=== PATIENT | male | born 1995 | race American Indian/Alaskan Native ===

== ENCOUNTER 2020-03-29 19:02 | Inpatient (IN) | payer OTHER ==
[~2020-03-29] VITALS: Ht 180.3 cm; Wt 99.9 kg
[2020-03-29 20:08] LABS: HEMATOCRIT 41.6 % (42.0-52.0); HEMOGLOBIN 14.5 g/dl (13.5-17.5); MEAN CORPUSCULAR HEMOGLOBIN 31.6 pg (27.0-33.0); MEAN CORPUSCULAR HGB CONC 34.9 g/dl (32.0-36.5); MEAN CORPUSCULAR VOLUME 90.6 fl (80.0-96.0); PLATELET COUNT, AUTOMATED 224 10^3/uL (150-450); RED BLOOD COUNT 4.59 10^6/uL (4.30-6.10); WHITE BLOOD COUNT 8.6 10^3/uL (4.0-10.0)
[2020-03-29 20:29] LABS: AMPHETAMINES LEVEL URINE NEGATIVE (NEGATIVE); BARBITURATES URINE NEGATIVE (NEGATIVE); BENZODIAZEPINES URINE NEGATIVE (NEGATIVE); CANNABINOIDS URINE NEGATIVE (NEGATIVE); COCAINE METABOLITE URINE NEGATIVE (NEGATIVE); METHADONE URINE NEGATIVE (NEGATIVE); OPIATES URINE NEGATIVE (NEGATIVE); PHENCYCLIDINE URINE NEGATIVE (NEGATIVE)
[2020-03-29 20:46] LABS: ACETAMINOPHEN LEVEL < 2.0 UG/ML (10.0-30.0); ALBUMIN 4.3 GM/DL (3.2-5.2); ALT/SGPT 29 U/L (12-78); BILIRUBIN,DIRECT 0.1 MG/DL (0.0-0.2); BILIRUBIN,TOTAL 0.4 MG/DL (0.2-1.0); BLOOD UREA NITROGEN 18 MG/DL (7-18); CALCIUM LEVEL 8.9 MG/DL (8.5-10.1); CARBON DIOXIDE LEVEL 30 MEQ/L (21-32); CHLORIDE LEVEL 106 MEQ/L (98-107); CREATININE FOR GFR 0.92 MG/DL (0.70-1.30); ETHYL ALCOHOL (ETHANOL) < 0.003 % (0.000-0.010); GLOMERULAR FILTRATION RATE > 60.0 (>60); GLUCOSE, FASTING 98 MG/DL (70-100); SALICYLATE LEVEL < 1.7 MG/DL (5.0-30.0); SODIUM LEVEL 139 MEQ/L (136-145); TOTAL PROTEIN 7.3 GM/DL (6.4-8.2)
[2020-03-29] MEDS ORDERED: OLANZapine ORAL DISINTEGRATING TAB 5MG PO PRN (22:00)
[2020-03-29] MEDS ORDERED: traZODone 50 MG TAB PO PRN (22:00)
[2020-03-29] MEDS ORDERED: ACETAMINOPHEN TAB 650MG DOSE (2X325MG) PO PRN (22:00)
[2020-03-29] MEDS ORDERED: MAALOX 30 ML SUSP *UDC PO PRN (22:00)
[2020-03-29] MEDS ORDERED: MOM 30ML SUSPENSION UDC PO PRN (22:00)
[2020-03-29 22:40] VITALS: BP 140/77
[2020-03-30 06:36] VITALS: BP 124/60
--- NOTE | 2020-03-30 09:15 | MHHPEPDOC ---
General Date Of Admission: Mar 29, 2020 Legal Status: 9.39 Chief Complaint "I wanted to talk". History of Present Illness HISTORY OF THE PRESENT ILLNESS: Patient is a 24 -year-old , male, who presents to [facility] after reportedly having some depressing thoughts, he was brought in to" speak to someone", however, was admitted out of an abundance of caution. The patient reports although he's had some stressful events in the does not like his unit, he has no suicidal thoughts. He reports some fatigue and insomnia, but that these are probably stress related. He reports his in suits arrived he hasn't had any major problems and reports that he's interested in being discharged. Psychiatric Review of Systems Depression (2 or more weeks): depressed mood Shayy (4 or more days of): denies Psychosis: denies PTSD: denies Anxiety: stressor related anxiety, panic attacks Anxiety/ 6 months or more of: sleep disturbance Past Psychiatric History Previous Psychiatric Diagnosis: none. Previous Psychiatric Admissions: once when he was very young Suicide Attempts:. Denies. Psychiatric Follow-up: none. Psychiatric medications: none. Past Medical History Medical Problems No significant medical problems Family Medical/Psychiatric HX Psychiatric Disorders: Yes (Some depression in various family members) Addiction History denies Social History Childhood: "fine". Abuse/Trauma: denies. Current Living Situation: lives in [place]. Education: high school. Employment: . Social Support: few. Legal: none noted. Marital: single no children. Mental Status Examination General Appearance: well groomed Build: average Demeanor: average Eye Contact: average Activity: average Behavior: cooperative Speech: clear Mood: euthymic Affect: full Thought Content (Delusions): denies SI, HI, AVH Thought Content (Other): none reported Thought Content (Aggressive): none reported Perception (Hallucinations): none reported Perception (Other): none reported Cognition (Impairment of): none reported Cognition(Intelligence Est.): average Insight: fair Judgment: Fair Psychosis: Denies A-FIB/CHADSVASC A-FIB History Current/History of A-Fib/PAF?: No Assessment 22-year-old man that likely presents in a state of adjustment is seen and start out medications, he would likely be discharged tomorrow as he does not meet involuntary criteria. Problem List Problems: (1) Adjustment disorder Status: Acute Response to Treatment: Improving Problem Text: Start Wellbutrin 150 mg daily, discussed risks, benefits and potential side effects, screens negative for seizures and eating disorders. (2) Occupation-related stress disorder Status: Chronic Problem Text: Recommend therapy outpatient (3) Discharge planning issues Problem Text: discharge protocols. Initial Treatment Plan 1. Patient was admitted on a [9.39] status. 2. Complete history was obtained. 3. With patients permission, family will be contacted and database will be expa nded. 4. Patients medication regimen will be reviewed and changed accordingly. 5. Patient will be provided with protected environment. 6. Patient will be treated with individual, group, and milieu therapies. 7. Patient will receive supportive psych-education. 8. Discharge planning will commence immediately. 9. Outpatient follow-up treatment will be strongly recommended. 10. The initial treatment plan will focus initially on: * Ineffective coping Risk for suicide. ESTIMATED LENGTH OF STAY: 1-2 DAYS. TIME SPENT COUNSELING AND COORDINATING INITIAL CARE: 30 minutes. Vital Signs Vital Signs Date Time Temp Pulse Resp B/P (MAP) Pulse Ox O2 Delivery O2 Flow Rate FiO2 03/30/20 06:36 96.6 62 16 124/60 (81) 97 Room Air Laboratory Data 24H Labs Laboratory Tests 2 03/29/20 19:45: Nucleated Red Blood Cells % (auto) 0.0, Anion Gap 3L, Glomerular Filtration Rate > 60.0, Calcium Level 8.9, Total Bilirubin 0.4, Direct Bilirubin 0.1, Aspartate Amino Transf (AST/SGOT) 21, Alanine Aminotransferase (ALT/SGPT) 29, Alkaline Phosphatase 77, Total Protein 7.3, Albumin 4.3, Albumin/Globulin Ratio 1.4, Thyroid Stimulating Hormone (TSH) 4.000H, Salicylates Level < 1.7L, Urine Opiates Screen NEGATIVE, Urine Methadone Screen NEGATIVE, Acetaminophen Level < 2.0L, Urine Barbiturates Screen NEGATIVE, Urine Phencyclidine Screen NEGATIVE, Urine Amphetamines Screen NEGATIVE, Urine Benzodiazepines Screen NEGATIVE, Urine Cocaine Metabolite Screen NEGATIVE, Urine Cannabinoids Screen NEGATIVE, Ethyl Alcohol Level < 0.003 CBC/BMP Laboratory Tests 03/29/20 19:45 Medications No Active Prescriptions or Reported Meds Allergies Coded Allergies: No Known Allergies (Unverified , 03/29/20) JT FORD DO Mar 30, 2020 09:15
[2020-03-30 11:59] VITALS: BP 124/60
--- NOTE | 2020-03-30 12:20 | HPEPDOC ---
[facility] Medical History & Physical Date of Admission Mar 30, 2020 Date of Service: Mar 30, 2020 History and Physical CHIEF COMPLAINT: Admitted to inpatient mental health unit for depression HISTORY OF PRESENT ILLNESS: 24-year-old male with no significant past medical history is admitted to inpatient was positive for worsening depression. Patient is in the , reports excessive amount of stress, lack of support and pe rsistent stress related to work and family. Patient was having fleeting thoughts of suicide, no plan in place. He has no previous history of suicide attempts or established diagnosis of depression. He has no medical problems, denies any shortness of breath, chest pain, nausea, vomiting, diarrhea or constipation. He does report improvement of symptoms after coming to the hospital as he feels more distracted. 10 point review of system is negative so for above PAST MEDICAL HISTORY: 1. None. PAST SURGICAL HISTORY: 1. None. SOCIAL HISTORY: Denies smoking. Social alcohol use. Denies drug use FAMILY HISTORY: Negative for heart disease or malignancy ALLERGIES: Please see below. HOME MEDICATIONS: Please see below. PHYSICAL EXAMINATION: VITAL SIGNS: Please see below. GENERAL: No distress HEENT: Normocephalic, atraumatic, moist mucous membranes NECK: Supple CARDIOVASCULAR EXAMINATION: S1, S2, no murmurs RESPIRATORY EXAMINATION: Clear to auscultation, no wheezing ABDOMINAL EXAMINATION: Soft, nontender, nondistended, positive bowel sounds EXTREMITIES: Range of motion intact SKIN: No rash NEUROLOGICAL EXAMINATION: Alert and oriented 3, no focal deficits PSYCHIATRIC EXAMINATION: Calm and cooperative LABORATORY DATA: See below. MICROBIOLOGY: Please see below. ASSESSMENT: 24-year-old male with no significant past medical history is admitted to inpatient with positive for depression. PLAN: 1. Depression Management as per primary team Patient has no active medical issues, please reconsult as needed. Vital Signs Vital Signs Date Time Temp Pulse Resp B/P (MAP) Pulse Ox O2 Delivery O2 Flow Rate FiO2 03/30/20 06:36 96.6 62 16 124/60 (81) 97 Room Air Laboratory Data Labs 24H Laboratory Tests 2 03/29/20 19:45: Nucleated Red Blood Cells % (auto) 0.0, Anion Gap 3L, Glomerular Filtration Rate > 60.0, Calcium Level 8.9, Total Bilirubin 0.4, Direct Bilirubin 0.1, Aspartate Amino Transf (AST/SGOT) 21, Alanine Aminotransferase (ALT/SGPT) 29, Alkaline Phosphatase 77, Total Protein 7.3, Albumin 4.3, Albumin/Globulin Ratio 1.4, Thyroid Stimulating Hormone (TSH) 4.000H, Salicylates Level < 1.7L, Urine Opiates Screen NEGATIVE, Urine Methadone Screen NEGATIVE, Acetaminophen Level < 2.0L, Urine Barbiturates Screen NEGATIVE, Urine Phencyclidine Screen NEGATIVE, Urine Amphetamines Screen NEGATIVE, Urine Benzodiazepines Screen NEGATIVE, Urine Cocaine Metabolite Screen NEGATIVE, Urine Cannabinoids Screen NEGATIVE, Ethyl Alcohol Level < 0.003 CBC/BMP Laboratory Tests 03/29/20 19:45 Home Medications No Active Prescriptions or Reported Meds Allergies Coded Allergies: No Known Allergies (Unverified , 03/29/20) A-FIB/CHADSVASC A-FIB History Current/History of A-Fib/PAF?: No MATA ALEXIS MD Mar 30, 2020 12:20
[2020-03-30 17:22] VITALS: BP 125/67
[2020-03-31 06:41] VITALS: BP 110/56
[2020-03-31] MEDS ORDERED: buPROPion **XL** TABLET 150MG (WELLBUTRIN XL) PO SCH (09:00)
--- NOTE | 2020-03-31 09:38 | MHDSPDOC ---
[facility] Discharge Summary Discharge Summary DATE OF ADMISSION: Mar 29, 2020 at 21:51 DATE OF DISCHARGE: 03/31/2020 DISCHARGE DIAGNOSES: See Problem list below REASON FOR ADMISSION: 24-year-old man admitted after making statements that were concerning tuition command CONSULTANTS INVOLVED:[ None (basic hospitalist screening)] TREATMENT AND PROGRESS ON THE UNIT : Medication changes: started on Wellbutrin 150 mg extended release daily with no ill effects Behavior on unit: amenable, friendly and jovial Treatment attedence: attended well Notable issues on presentation: known notable issues, resolved without much problems and requested discharge State on discharge: stable DISCHARGE ASSESSMENT: 24-year-old man with a history of likely situational problems presents after making concerning statement. He's observe for 48 hours for he does not meet criteria for further involuntary admission and declines a voluntary extension The patient at the time of discharge did not meet criteria for involuntary admission/extension due to having a [normal] mental status exam, [fair] insight into the situation, They are engaged in the discharge process, as well as being friendly and amenable in behavioral control and havent been engaging in any observed concerning behavior or ideation recently. They decline voluntary extension/admission at this time and must be discharged in [place], as Im unable to make a case for holding the patient against their will. They may have historical risk factors of admissions and other interactions with psychiatry however, those are not modifiable from a clinical perspective. The patient will need to be discharged in [place]. MENTAL STATUS EXAMINATION ON DISCHARGE: [General: Well dressed with good hygiene Speech: Spontaneous and fluid Thought processes: Linear and logical Thought content: Future orientated Abstract reasoning, and computation: Intact Description of associations: Intact Description of abnormal or psychotic thoughts:Denies any suicidal or homicidal ideation. Denies any auditory or visual hallucinations. Does not appear to be responding to internal stimuli. Does not appear to be endorsing any bizarre or paranoid ideation. Judgment: fair Insight: fair Orientation: Alert and orientated 3 Recent and remote memory: Intact Attention span and concentration: Intact Fund of knowledge: Adequate Mood: "okay" Affect: Euthymic with a full range] PLAN/FOLLOWUP ARRANGEMENTS: Follow up appointments made and safety plan completed. The amount of time spent in the coordination of care for this patient was approximately 30 minutes. Vital Signs/I&Os Vital Signs Date Time Temp Pulse Resp B/P (MAP) Pulse Ox O2 Delivery O2 Flow Rate FiO2 03/31/20 06:41 97.2 52 16 110/56 (74) 95 Room Air Medications Scheduled Bupropion Hcl (Bupropion Xl) 150 Mg Tab.er.24h, 150 MG PO DAILY for mood for 7 Days, #7 Allergies Coded Allergies: No Known Allergies (Unverified , 03/29/20) Problems (1) Adjustment disorder Status: Resolved (2) Occupation-related stress disorder Status: Chronic Plan / VTE VTE Prophylaxis Ordered?: No JT FORD DO Mar 31, 2020 09:38
[2020-03-31] MEDS ORDERED: BUPR150T3 PO (09:59)
== END 2020-03-31 12:27 | disposition home or self-care (01) | DRG 882 ==
LOC: M ED 19:02 → M ED INP 21:51 → M PSY 22:34
PROVIDERS: ADMIT Psychiatry & Neurology Addiction Medicine; ATTEND Psychiatry & Neurology Addiction Medicine
DX: F43.20 Adjustment disorder, unspecified (principal); Z56.89 Other problems related to employment; F43.9 Reaction to severe stress, unspecified

== ENCOUNTER 2020-06-03 20:39 | Emergency (ER) | payer OTHER ==
[~2020-06-03 20:39] MED LIST: ACETAMINOPHEN 500 MG TAB ONE; BUPR150T3 PO; KETOROLAC 30 MG/ML 1ML VIAL ONE
== END 2020-06-03 21:40 | disposition home or self-care (01) ==
LOC: M ED 20:39
DX: R51 Headache (principal); G43.909 Migraine, unspecified, not intractable, without status migrainosus; F32.9 Major depressive disorder, single episode, unspecified
CPT/HCPCS: 70450; 96372; 99283; J1885

== ENCOUNTER 2020-06-07 12:35 | Emergency (ER) | payer OTHER ==
[~2020-06-07 12:35] MED LIST changes: -ACETAMINOPHEN 500 MG TAB ONE; -KETOROLAC 30 MG/ML 1ML VIAL ONE
--- NOTE | 2020-07-09 09:44 | ECGEPIP ---
[facility] - ED Test Date: 2020-06-07 Pat Name: JIMENA LAND Department: Room: - Gender: Male Nondestructive Tester: FROY : 1995 Requested By: RAZ Greco Order Number: [id number] Reading MD: Lyle Lion Measurements Intervals [place] Rate: 54 P: 60 MA: 159 QRS: 38 QRSD: 109 T: 21 QT: 406 QTc: 385 Interpretive Statements SINUS BRADYCARDIA INDETERMINATE AXIS BORDERLINE ECG SEE SCANNED DOWNTIME REPORT
[2020-07-10 12:52] LABS: BASO % 0.5 % (0.0-1.0); EOS # 0.2 10^3/uL (0.0-0.5); EOS % 2.4 % (0.0-3.0); HEMATOCRIT 47.8 % (42.0-52.0); HEMOGLOBIN 16.1 g/dl (13.5-17.5); LYMPH # 3.2 10^3/uL (1.5-5.0); LYMPH % 36.2 % (24.0-44.0); MEAN CORPUSCULAR HEMOGLOBIN 31.9 pg (27.0-33.0); MEAN CORPUSCULAR HGB CONC 33.7 g/dl (32.0-36.5); MEAN CORPUSCULAR VOLUME 94.7 fl (80.0-96.0); MONO # 0.6 10^3/uL (0.0-0.8); MONO % 6.5 % (0.0-5.0); NEUTROPHILS # 4.7 10^3/uL (1.5-8.5); NEUTROPHILS % 54.1 % (36.0-66.0); PLATELET COUNT, AUTOMATED 255 10^3/uL (150-450); RED BLOOD COUNT 5.05 10^6/uL (4.30-6.10); WHITE BLOOD COUNT 8.7 10^3/uL (4.0-10.0)
[2020-07-10 14:02] LABS: APPEARANCE, URINE CLEAR (CLEAR); BACTERIA, URINE AUTO NEGATIVE (NEGATIVE); BILIRUBIN, URINE AUTO NEGATIVE (NEGATIVE); BLOOD, URINE BLOOD NEGATIVE (NEGATIVE); COLOR, URINE YELLOW (YELLOW); GLUCOSE, URINE (UA) AUTO NEGATIVE (NEGATIVE); KETONE, URINE AUTO NEGATIVE (NEGATIVE); LEUKOCYTE ESTERASE, URINE AUTO NEGATIVE (NEGATIVE); MUCUS, URINE SMALL (NEGATIVE); NITRITE, URINE AUTO NEGATIVE (NEGATIVE); PROTEIN, URINE AUTO NEGATIVE (NEGATIVE); RBC, URINE AUTO 2 /HPF (0-3); SPECIFIC GRAVITY URINE AUTO 1.024 (1.002-1.035); SQUAMOUS EPITHELIAL CELL UR AU 0 /HPF (0-6); UROBILINOGEN, URINE AUTO 0.2 mg/dL (0.0-2.0); WBC, URINE AUTO 1 /HPF (0-3)
[2020-07-21 11:53] LABS: ALBUMIN 4.5 GM/DL (3.2-5.2); ALT/SGPT 37 U/L (12-78); BILIRUBIN,DIRECT 0.1 MG/DL (0.0-0.2); BILIRUBIN,TOTAL 0.7 MG/DL (0.2-1.0); BLOOD UREA NITROGEN 16 MG/DL (7-18); CALCIUM LEVEL 9.7 MG/DL (8.5-10.1); CARBON DIOXIDE LEVEL 31 MEQ/L (21-32); CHLORIDE LEVEL 106 MEQ/L (98-107); CREATININE FOR GFR 1.08 MG/DL (0.70-1.30); FREE T4 0.95 NG/DL (0.76-1.46); GLOMERULAR FILTRATION RATE > 60.0 (>60); GLUCOSE, FASTING 70 MG/DL (70-100); LIPASE 188 U/L (73-393); POTASSIUM SERUM 4.5 MEQ/L (3.5-5.1); SODIUM LEVEL 141 MEQ/L (136-145); TROPONIN I < 0.02 NG/ML (< 0.10)
== END 2020-06-07 20:15 | disposition home or self-care (01) ==
LOC: M ED 12:35
DX: B34.9 Viral infection, unspecified (principal); R06.02 Shortness of breath; R05 Cough; R00.1 Bradycardia, unspecified

== ENCOUNTER 2021-09-17 18:01 | Inpatient (IN) | payer OTHER ==
[~2021-09-17] VITALS: Ht 180.3 cm; Wt 95.8 kg
[~2021-09-17 18:01] MED LIST changes: +BUPR150T12 PO; -BUPR150T3 PO
[2021-09-17] MEDS ORDERED: CHARCOAL ACTIVATED LIQUID 25 GM/120 ML BTL PO ONE (18:35)
[2021-09-17] MEDS: NS 1,000 ML IV SCH ×2 (19:00→19:43)
[2021-09-17 19:30] LABS: BASO % 0.4 % (0.0-1.0); EOS % 0.7 % (0.0-3.0); HEMATOCRIT 47.6 % (42.0-52.0); LYMPH # 1.8 10^3/uL (1.5-5.0); LYMPH % 32.6 % (24.0-44.0); MEAN CORPUSCULAR HEMOGLOBIN 31.5 pg (27.0-33.0); MEAN CORPUSCULAR HGB CONC 33.6 g/dl (32.0-36.5); MEAN CORPUSCULAR VOLUME 93.7 fl (80.0-96.0); MONO # 0.8 10^3/uL (0.0-0.8); MONO % 15.2 % (2.0-8.0); NEUTROPHILS # 2.7 10^3/uL (1.5-8.5); NEUTROPHILS % 50.7 % (36.0-66.0); PLATELET COUNT, AUTOMATED 226 10^3/uL (150-450); RED BLOOD COUNT 5.08 10^6/uL (4.30-6.10); WHITE BLOOD COUNT 5.4 10^3/uL (4.0-10.0)
[2021-09-17 20:04] LABS: ACETAMINOPHEN LEVEL < 2.0 UG/ML (10.0-30.0); ALBUMIN 4.1 GM/DL (3.2-5.2); ALT/SGPT 36 U/L (12-78); BILIRUBIN,DIRECT 0.2 MG/DL (0.0-0.2); BILIRUBIN,TOTAL 0.6 MG/DL (0.2-1.0); BLOOD UREA NITROGEN 14 MG/DL (7-18); CALCIUM LEVEL 9.1 MG/DL (8.5-10.1); CARBON DIOXIDE LEVEL 27 MEQ/L (21-32); CHLORIDE LEVEL 109 MEQ/L (98-107); CREATININE FOR GFR 1.26 MG/DL (0.70-1.30); ETHYL ALCOHOL (ETHANOL) < 0.003 % (0.000-0.010); GLOMERULAR FILTRATION RATE > 60.0 (>60); GLUCOSE, FASTING 82 MG/DL (70-100); POTASSIUM SERUM 4.4 MEQ/L (3.5-5.1); SALICYLATE LEVEL < 1.7 MG/DL (5.0-30.0); SODIUM LEVEL 142 MEQ/L (136-145); TOTAL PROTEIN 7.3 GM/DL (6.4-8.2)
[2021-09-17 22:22] LABS: AMPHETAMINES LEVEL URINE NEGATIVE (NEGATIVE); BARBITURATES URINE NEGATIVE (NEGATIVE); BENZODIAZEPINES URINE NEGATIVE (NEGATIVE); CANNABINOIDS URINE NEGATIVE (NEGATIVE); COCAINE METABOLITE URINE NEGATIVE (NEGATIVE); METHADONE URINE NEGATIVE (NEGATIVE); OPIATES URINE NEGATIVE (NEGATIVE); PHENCYCLIDINE URINE NEGATIVE (NEGATIVE)
[2021-09-18 00:55] LABS: BLOOD UREA NITROGEN 17 MG/DL (7-18); CALCIUM LEVEL 8.6 MG/DL (8.5-10.1); CARBON DIOXIDE LEVEL 26 MEQ/L (21-32); CHLORIDE LEVEL 111 MEQ/L (98-107); GLOMERULAR FILTRATION RATE > 60.0 (>60); GLUCOSE, FASTING 92 MG/DL (70-100); POTASSIUM SERUM 3.9 MEQ/L (3.5-5.1); SODIUM LEVEL 143 MEQ/L (136-145)
[2021-09-18] MEDS: NS 1,000 ML IV SCH ×3 (00:56→21:05)
[2021-09-18] MEDS ORDERED: HOME MED LIST COMPLETE! XX SCH (12:10)
[2021-09-18 14:19] LABS: RSV AMPLIFICATION NEGATIVE (NEGATIVE)
[2021-09-18] MEDS ORDERED: traZODone 50 MG TAB PO PRN (15:20)
[2021-09-18] MEDS ORDERED: MOM 30ML SUSPENSION UDC PO PRN (15:20)
[2021-09-18] MEDS ORDERED: MAALOX 30 ML SUSP *UDC PO PRN (15:20)
[2021-09-18] MEDS ORDERED: ACETAMINOPHEN TAB 650MG DOSE (2X325MG) PO PRN (15:20)
[2021-09-18 21:31] VITALS: BP 128/81
[2021-09-19 06:29] VITALS: BP 131/77
[2021-09-19] MEDS: VENLAFAXINE **XR** 37.5 MG CAPSULE PO SCH (09:50)
[2021-09-19 17:05] VITALS: BP 130/71
[2021-09-20 06:27] VITALS: BP 134/73
[2021-09-20] MEDS: VENLAFAXINE **XR** 37.5 MG CAPSULE PO SCH (09:47)
[2021-09-20 16:40] VITALS: BP 114/69
[2021-09-21 06:35] VITALS: BP 112/66
[2021-09-21] MEDS: VENLAFAXINE **XR** 37.5 MG CAPSULE PO SCH (09:38)
[2021-09-21 18:26] VITALS: BP 120/67
[2021-09-22 07:27] VITALS: BP 137/92
[2021-09-22] MEDS: VENLAFAXINE **XR** 75MG CAPSULE PO SCH (09:11)
[2021-09-22 16:06] VITALS: BP 130/85
[2021-09-23 06:38] VITALS: BP 128/81
[2021-09-23] MEDS: VENLAFAXINE **XR** 75MG CAPSULE PO SCH (08:39)
[2021-09-23 16:11] VITALS: BP 130/81
[2021-09-24 06:33] VITALS: BP 101/60
[2021-09-24] MEDS: VENLAFAXINE **XR** 75MG CAPSULE PO SCH (08:17)
[2021-09-24 16:32] VITALS: BP 137/90
[2021-09-25 06:38] VITALS: BP 107/60
[2021-09-25] MEDS ORDERED: VENL75CA47 PO (08:37)
[2021-09-25] MEDS: VENLAFAXINE **XR** 75MG CAPSULE PO SCH (09:45)
== END 2021-09-25 13:51 | disposition home or self-care (01) | DRG 881 ==
LOC: M ED 18:01 → M ED INP 09-18 15:20 → M PSY 09-18 21:12
PROVIDERS: ADMIT Student in an Organized Health Care Education/Training Program; ATTEND Student in an Organized Health Care Education/Training Program
DX: F34.1 Dysthymic disorder (principal); R45.851 Suicidal ideations; F43.9 Reaction to severe stress, unspecified; Z56.5 Uncongenial work environment; Z20.822 Contact with and (suspected) exposure to COVID-19; J11.1 Influenza due to unidentified influenza virus with other respiratory manifestations